=== PATIENT | female | born 1985 | race Caucasian/White ===

== ENCOUNTER → 2018-02-02 | Outpatient (CLI) | payer BC | END | disposition home or self-care (01) | LOC: LAB SHORT 07:58 → PLD 07:58 | DX: N72 Inflammatory disease of cervix uteri (principal) | CPT/HCPCS: 88305 ==

== ENCOUNTER → 2022-05-08 | Outpatient (CLI) | payer OTHER ==
[2022-05-10 19:10] LABS: HPV 16 Negative (Negative); HPV 18 Negative (Negative); HPV OTHER HR TYPES Positive (Negative)
== END | disposition home or self-care (01) ==
LOC: LAB 15:50 → LAB SHORT 15:50
PROVIDERS: Family Medicine
DX: Z01.419 Encounter for gynecological examination (general) (routine) without abnormal findings (principal)
CPT/HCPCS: 87624; G0145

== ENCOUNTER → 2023-07-14 | Outpatient (CLI) | payer OTHER ==
[2023-07-15 11:24] LABS: G. vaginalis (DNA Probe) Negative (NEGATIVE); T. vaginalis (DNA Probe) Negative (NEGATIVE)
[2023-07-15 11:25] LABS: Candida species (DNA Probe) Negative (NEGATIVE)
[2023-07-17 01:10] LABS: CHLAMYDIA TRACHOMATIS, NAA Negative (Negative); HPV 16 Negative (Negative); HPV 18 Negative (Negative); HPV OTHER HR TYPES Positive (Negative)
== END ==
LOC: LAB SHORT 18:09 → LAB 18:09
PROVIDERS: Family Medicine
DX: Z01.419 Encounter for gynecological examination (general) (routine) without abnormal findings (principal)
CPT/HCPCS: 87480; 87491; 87510; 87591; 87624; 87660; G0145

== ENCOUNTER 2023-09-09 09:59 | Day surgery (SDC) | payer OTHER ==
[~2023-09-09] VITALS: Ht 165.1 cm; Wt 98.4 kg
[2023-09-09] MEDS ORDERED: Norethindrone0.35 MG PO (10:27)
[2023-09-09] MEDS ORDERED: NEURONTIN300 MG PO (10:27)
[2023-09-09] MEDS ORDERED: LOSARTAN-HCTZ1 EACH PO (10:28)
[2023-09-09 12:38] VITALS: BP 123/78
== END 2023-09-09 12:35 | disposition home or self-care (01) ==
LOC: ORSCSDS 09:59
PROVIDERS: Otolaryngology
PROC: 0CB3XZX Excision of Soft Palate, External Approach, Diagnostic (ICD-10-PCS; principal; 2023-09-09 11:15)
DX: D10.39 Benign neoplasm of other parts of mouth (principal); J39.2 Other diseases of pharynx; I10 Essential (primary) hypertension; Z79.899 Other long term (current) drug therapy; Z68.36 Body mass index [BMI] 36.0-36.9, adult
CPT/HCPCS: 88305; J1100; J2250; J2405; J2704; J2765; J3010; J7120

== ENCOUNTER → 2023-10-02 | Outpatient (CLI) | payer OTHER ==
[~2023-10-02] MED LIST: LOSARTAN-HCTZ1 EACH PO; NEURONTIN300 MG PO; Norethindrone0.35 MG PO
== END ==
LOC: LAB SHORT 15:44 → LAB 15:44
DX: N87.0 Mild cervical dysplasia (principal)
CPT/HCPCS: 88305

== ENCOUNTER → 2025-06-24 | Outpatient (CLI) | payer OTHER ==
[2025-06-28 17:35] LABS: HPVG SOURCE Cervical
== END | disposition home or self-care (01) ==
LOC: LAB 06:53 → LAB SHORT 06:53
PROVIDERS: Family Medicine
DX: Z01.419 Encounter for gynecological examination (general) (routine) without abnormal findings (principal)
CPT/HCPCS: 87624; 87625; G0123; G0145

== ENCOUNTER → 2025-08-19 | Outpatient (CLI) | payer OTHER | LOC: LAB 08:03 → LAB SHORT 08:03 | DX: N87.1 Moderate cervical dysplasia (principal) | CPT/HCPCS: 88305; 88342 ==

== ENCOUNTER → 2025-09-30 | Outpatient (CLI) | payer OTHER ==
[2025-09-30 15:04] LABS: Source, Urine Clean Catch
[2025-09-30 16:20] LABS: Bilirubin, Urine Neg (Neg); Color, Urine Yellow (P-Yellow); Glucose Qualitative, Urine Neg (Neg); Ketones, Urine Neg (Neg); Leukocyte Esterase, Urine Neg (Neg); Protein, Urine Neg (Neg); Specific Gravity, Urine 1.020 (1.003-1.022); Urobilinogen, Urine NORM (Normal)
[2025-09-30 16:39] LABS: Red Blood Cells, Urine Not Seen /hpf (0-2); White Blood Cells, Urine 0-2 /hpf (0-5)
== END | disposition home or self-care (01) ==
LOC: LAB SHORT 08:24 → LAB 08:24
PROVIDERS: Obstetrics & Gynecology
DX: Z01.812 Encounter for preprocedural laboratory examination (principal)
CPT/HCPCS: 81001; 87086